=== PATIENT | male | born 1955 | race Caucasian/White ===

== ENCOUNTER → 2020-02-09 | Outpatient (CLI) | payer OTHER | LOC: COL.RAD 12:11 | DX: M19.042 Primary osteoarthritis, left hand (principal); M19.022 Primary osteoarthritis, left elbow; M77.8 Other enthesopathies, not elsewhere classified ==

== ENCOUNTER → 2021-11-15 | Outpatient (CLI) | payer OTHER ==
[~2021-11-15] MED LIST: ACTOS30 MG PO; ALEVE 220MG220 MG PO; GLUCOPHAGE1000 MG PO; GLUCOTROL10 MG PO; JARDIANCE25 PO; LIPITOR 40MG TA40 MG PO; LOPRESSOR100 MG PO; OZEMPIC1 MG/0.71 SQ; PRINIVIL40 MG PO
--- NOTE | 2021-11-15 12:18 | NUR ---
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 they would not do any anesthesia because he did not have a substitute bus driver.
== END ==
LOC: COL.RAD 11:30
DX: M54.50 Low back pain, unspecified (principal)